=== PATIENT | female | born 1985 ===

== ENCOUNTER 2017-11-11 20:04 | Inpatient (IN) | payer BC ==
[2017-11-11] MEDS ORDERED: Lactated Ringer's 1,000 ML IV SCH (21:00)
--- NOTE | 2017-11-11 21:15 | OBHP ---
Datetime: 11/11/2017 21:00 IP Adm Impression: Term, intrauterine ; Active labor IP Admit Plan: Admit to unit; Initiate labor protocol Admit Comment, IP Provider: 32yo with IUP at 38.5wks presents here today c/o painful contrac tions which started yesterday but progressed throughout today. She denies any LOF but has seen show a nd reports good movement. Pt recieves PNC with Dr Samayoa and reports course has been u ncomplicated. O: BP -11/78, HR - 64 Heart - RR Chest: CTA B/L Abd: Soft, NT, BS - present [place]: Q 3-5 FHR - 130s, reguar, Category 1 Pelvic: Cervix: 4-5/80/-2, Vertex presentatin. Assessment: IUP at 38+wks in Active Labor NST - Reactive Plan: D/W Dr Samayoa by phone. Admit to LND for labor monitoring Epidural if Pt desires, Rupture membranes and monitor the progress of labor GBS Result unavailable. Treat as Negative. Reevaluate. Pelvic Type - PN: Adequate Extremities - PN: Normal Abdomen - PN: Normal Back - PN: Normal Breast - PN: Normal Lungs - PN: Normal Heart - PN: Normal Thyroid - PN: Normal Neurologic - PN: Normal HEENT - PN: Normal General - PN: Normal FHR - Baseline A Provider: 130s Membranes, Provider: Intact Contraction Comments Provider: Q 2-4 Gestation - Est Wks by US: 38.5 EGA AdmitDate IP: 38.5 Vital Signs Provider: Reviewed IP Chief Complaint: Uterine contractions; Maternal discomfort NICHD Variability Prov Fetus A: Moderate 6-25bpm NICHD Accel Fetus A IP Provider: [id number] FHR Category Provider Fetus A: Category I Dilatation, Provider: 5 Effacement, Provider: 80 Station, Provider: -2 Genitourinary Exam: Normal DTRs - PN: Normal
[2017-11-11] MEDS ORDERED: Oxytocin 30 units/LR 500ML 30 U/500 ML BAG IV ONE (21:16)
[2017-11-11] MEDS ORDERED: Penicillin G Potassium 5 MU in Sodium Chloride 0.9% 50 ML IVPB STA (21:30)
[2017-11-11] MEDS ORDERED: Penicillin G 5 Million Unit Vial IVPB ONE (21:41)
[2017-11-11 22:13] VITALS: O2SAT 100
--- NOTE | 2017-11-12 00:07 | OBDS ---
MATERNAL INFORMATION Provider Comments: pt was fully dilated and pushing, atruamtic, spontanoeus delivery of anterior fol lowed by posterir shoulder followed by delivery of the body. both oral and nasal passages of the blbl suctioned. Umbilical cord clamped and cut. baby handed to mother on abdomen with rn assistance. Cor d blood colleclted and sent x 2. spontaneous deliveyr of intat placenta with membranes. Fundus firm, good hemostais, no ocmpliaiton. Live female apgars 9,9 weight of 7lbs 11 ounces ebl 150ml no compliaitons LABOR SUMMARY EDC: 11/20/2017 00:00 No. Babies in Womb: 1 LABOR INFORMATION Group B Beta Strep: Done, Result Unknown MEMBRANES Membranes Rupture Method: Artificial Rupture of Membranes: 11/11/2017 23:00 Amniotic Fluid Color: Clear Amniotic Fluid Amount: Moderate Amniotic Fluid Odor: Normal
[2017-11-12] MEDS ORDERED: Oxycodone/Acetaminophen 5/325 mg Tab PO PRN ×4 (00:08→01:13)
[2017-11-12 07:22] LABS: BASO # 0.1 K/uL (0.0-0.2); BASO % 0.7 % (0.0-2.0); EOS # 0.1 K/uL (0.0-0.7); EOS % 0.3 % (0.0-4.0); HEMOGLOBIN 13.1 g/dL (12.0-16.0); LYMPH # 1.7 K/uL (1.0-4.3); LYMPH % 8.7 % (20.0-40.0); MEAN CELL VOLUME 95.1 fl (81.0-99.0); MEAN CORPUSCULAR HEMOGLOBIN 32.1 pg (27.0-31.0); MEAN CORPUSCULAR HGB CONC 33.8 g/dL (33.0-37.0); MEAN PLATELET VOLUME 8.4 fl (7.2-11.7); MONO # 1.4 K/uL (0.0-0.8); MONO % 7.3 % (0.0-10.0); NEUT # 16.2 K/uL (1.8-7.0); NRBC % 0.1 % (0.0-0.0); PLATELET COUNT 176 K/uL (130-400); RBC 4.08 Mil/uL (3.80-5.20); RED CELL DISTRIBUTION WIDTH 14.3 % (11.5-14.5); WHITE BLOOD COUNT 19.5 K/uL (4.8-10.8)
[2017-11-12] MEDS ORDERED: Multivitamin With Minerals Tab PO SCH (09:00)
[2017-11-12] MEDS: Multivitamin With Minerals Tab PO SCH (09:45)
[2017-11-12 10:32] LABS: BANDS 4 % (0-2); LYMPHOCYTE 7 % (20-50); MONOCYTE 5 % (0-10); NEUTROPHIL 82 % (42-75); PLATELET ESTIMATE NORMAL (NORMAL); REACTIVE LYMPHOCYTES 2 % (0-0); TOTAL CELLS COUNTED 100
[2017-11-13] MEDS: Multivitamin With Minerals Tab PO SCH (09:29)
[2017-11-13 12:27] LABS: BASO % 0.2 % (0.0-2.0); EOS # 0.3 K/uL (0.0-0.7); EOS % 2.1 % (0.0-4.0); HEMOGLOBIN 12.7 g/dL (12.0-16.0); LYMPH # 2.1 K/uL (1.0-4.3); LYMPH % 14.7 % (20.0-40.0); MEAN CELL VOLUME 93.9 fl (81.0-99.0); MEAN CORPUSCULAR HEMOGLOBIN 32.5 pg (27.0-31.0); MEAN CORPUSCULAR HGB CONC 34.6 g/dL (33.0-37.0); MEAN PLATELET VOLUME 8.2 fl (7.2-11.7); MONO # 0.7 K/uL (0.0-0.8); MONO % 4.8 % (0.0-10.0); NEUT % 78.2 % (50.0-75.0); NRBC % 0.2 % (0.0-0.0); PLATELET COUNT 201 K/uL (130-400); RED CELL DISTRIBUTION WIDTH 14.5 % (11.5-14.5); WHITE BLOOD COUNT 14.1 K/uL (4.8-10.8)
[2017-11-13 15:26] LABS: BANDS 2 % (0-2); EOSINOPHIL 2 % (0-7); LYMPHOCYTE 15 % (20-50); METAMYELOCYTE 1 % (0-0); MONOCYTE 5 % (0-10); MYELOCYTE 3 % (0-0); NEUTROPHIL 72 % (42-75); PLATELET ESTIMATE NORMAL (NORMAL); TOTAL CELLS COUNTED 100
[2017-11-13 19:03] VITALS: BP 108/76; PULSE 84; RESP 20; TEMP 97.3
--- NOTE | 2017-11-14 14:09 | OBDCSUM ---
Datetime: 11/13/2017 11:47 Discharge Instructions, Provider: Routine instructions given Discharge Diagnosis, Provider: Term Delivered Disch Activity Restrictions: No sexual activity; Nothing in vagina - [place], tampons, douche Discharge Comment, Provider: preclaution givne Contraception after Delivery: Not Planning to Use
--- NOTE | 2017-11-14 14:10 | OBPPN ---
Datetime: 11/14/2017 14:02 PP Pain Prov: Within normal limits PP Nausea Prov: Denies PP Flatus Prov: Yes PP Breasts Prov: Normal PP Heart Prov: Normal PP Lungs Prov: Normal PP Abdomen/Uterus Prov: Normal PP Lochia Prov: Normal PP Vulva/Perineum Prov: Normal PP CVA Tenderness Prov: Normal PP Extremities Prov: Normal PP C/S Incision Prov: Not Applicable PP Progress Prov: Normal PP Impression Prov: Normal progression PP Plan Prov: Continue present management; Discharge PP Progress Note Prov: Delayed etry Pt seen adn examiend 11/13 reports pain controlled , ambulating, voiidng, passing flatus, pt is [place] [address] feeding VSS PE See above a/p s/p PPD #2 f/u repeat cbc dc home rot 6 weeks cont pnv Vital Signs Provider PP: Reviewed; Within Normal Limits
== END 2017-11-13 13:00 | disposition home or self-care (01) | DRG 775 ==
LOC: H.EROB2 20:04 → H.L&D 20:51 → H.OB/GYN 11-12 07:00
PROVIDERS: ADMIT Obstetrics & Gynecology; ATTEND Obstetrics & Gynecology
PROC: 10E0XZZ Delivery of Products of Conception, External Approach (ICD-10-PCS; principal; 2017-11-11)
PROC: 4A1HXCZ Monitoring of Products of Conception, Cardiac Rate, External Approach (ICD-10-PCS; 2017-11-11)
DX: O80 Encounter for full-term uncomplicated delivery (principal); Z37.0 Single live birth; Z3A.38 38 weeks gestation of pregnancy